=== PATIENT | male | born 1955 | race Caucasian/White ===

== ENCOUNTER 2020-02-19 16:28 | Emergency (ER) | payer MEDICARE, OTHER ==
[~2020-02-19] VITALS: Ht 172.7 cm; Wt 63.0 kg
[~2020-02-19 16:28] MED LIST: DOXY100T PO; QUET25TA5 PO
[2020-02-19 16:53] LABS: BILIRUBIN,URINE NEGATIVE (NEG); CLARITY,URINE CLEAR; COLOR,URINE YELLOW; NITRITE,URINE NEGATIVE (NEG); PROTEIN,URINE NEGATIVE (NEG-TRACE); UROBILINOGEN,URINE 0.2 mg/dL (0.2 mg/dL)
--- NOTE | 2020-02-19 16:59 | PHYS DOC ---
Past Medical History Past Medical History: Pneumonia Additional Past Medical Histor: alzheimer's, partial left eye blindness Past Surgical History: Appendectomy Smoking Status: Never Smoker Alcohol Use: None Drug Use: None General Adult EDM: Chief Complaint: ABDOMINAL PAIN HPI: HPI: Patient is a 64 year old male who presents with 1 week of intermittent abdominal pain generalized with some nausea. Patient has Alzheimer's and is unable to tell me why he is here or give me accurate history. states that he complained that this aching pain went up to the left shoulder and that was yesterday. She states that she is been trying to get him into his doctor but they are both through February. She states that his only history is Alzheimer's and he has left eye blindness and has had his appendix out. She states he has been constipated. She states his last bowel movement was very small and it was very small. states that the patient began vomiting this morning. Patient denies any pain at this time. He states he is slightly nauseated. Patient and deny chest pain, shortness of air, diarrhea, fever, cough, back pain, dizziness, headache, body aches, focal weakness. Review of Systems: Review of Systems: Constitutional: Denies fever or chills. [] Eyes: Denies change in visual acuity. [] HENT: Denies nasal congestion or sore throat. [] Respiratory: Denies cough or shortness of breath. [] Cardiovascular: Denies chest pain or edema. [] GI: + Intermittent abdominal pain, nausea, vomiting, constipation denies bloody stools or diarrhea. [] : Denies dysuria. [] Musculoskeletal: Denies back pain or joint pain. Left shoulder pain. [] Integument: Denies rash. [] Neurologic: Denies headache, focal weakness or sensory changes. [] Endocrine: Denies polyuria or polydipsia. [] Lymphatic: Denies swollen glands. [] Psychiatric: Denies depression or anxiety. [] Heart Score: Risk Factors: Risk Factors: DM, Current or recent (<one month) smoker, HTN, HLP, family history of CAD, obesity. Risk Scores: Score 0 - 3: 2.5% MACE over next 6 weeks - Discharge Home Score 4 - 6: 20.3% MACE over next 6 weeks - Admit for Clinical Observation Score 7 - 10: 72.7% MACE over next 6 weeks - Early Invasive Strategies Allergies: Allergies: Allergies Coded Allergies Type Severity Reaction Last Updated Verified No Known Drug Allergies 02/17/19 No Physical Exam: PE: Constitutional: Well developed, well nourished, no acute distress, non-toxic appearance. [] HENT: Normocephalic, atraumatic, bilateral external ears normal, oropharynx moist, no oral exudates, nose normal. [] Eyes: PERRLA, EOMI, conjunctiva normal, no discharge. [] Neck: Normal range of motion, no tenderness, supple, no stridor. [] Cardiovascular:Heart rate regular rhythm, no murmur [] Lungs & Thorax: Bilateral breath sounds clear to auscultation [] Abdomen: Bowel sounds normal, soft, no tenderness, no masses, no pulsatile masses. [] Skin: Warm, dry, no erythema, no rash. [] Back: No tenderness, no CVA tenderness. [] Extremities: No tenderness, no cyanosis, no clubbing, ROM intact, no edema. [] Neurologic: Alert and oriented X 3, normal motor function, normal sensory function, no focal deficits noted. [] Psychologic: Affect normal, judgement normal, mood normal. Normal physical exam. [] EKG: EK and read by Dr Beasley as Sinus Rhythm and no STEMI[] Radiology/Procedures: Radiology/Procedures: [] Impression: [facility] [address] [place], [place] [id number] IMAGING REPORT Signed PATIENT: DAVON ZHAO MACCOUNT: [id number] : 1955 LOCATION: ER AGE: 64 SEX: M EXAM STATUS: PRE ER ORD. PHYSICIAN: EVERARDO ULLOA APRN REASON: PAIN, VOMITING PROCEDURE: CT ABD PELV W/ IV CONTRST ONLY Exam: CT of abdomen and pelvis with contrast INDICATION: Pain, vomiting TECHNIQUE: Sequential axial images through the abdomen and pelvis obtained following the administration of 75 mL of Omni 300 IV contrast. Sagittal and coronal reformatted images were reconstructed from the axial data and reviewed. Comparisons: None FINDINGS: Heart size is normal. No pericardial effusion. Visualized lung bases are clear. No pleural effusion. Liver, spleen, pancreas, gallbladder and adrenals are unremarkable. No perinephric inflammation or hydronephrosis. No ureteral calculi are identified. There is a 1 cm calculus at the lower pole of the left kidney. Bladder is decompressed not well evaluated. Prostate is not enlarged. There is a partially visualized right hydrocele. Large and small bowel are unremarkable. Appendix is not identified. No free intra-abdominal air or fluid. No obstruction. Abdominal aorta has normal course and caliber. Abdominal vasculature is patent. No enlarged intra-abdominal lymph nodes are identified. No suspicious osseous lesions or acute fractures. IMPRESSION: 1. Nonobstructing calculus at the left kidney. 2. Partially visualized right hydrocele in the scrotum. Exposure: One or more of the following in the visualized dose reduction techniques were utilized for this examination: 1. Automated exposure control 2. Adjustment of the MA and/or KV according to patient size 3. Use of iterative of reconstructive technique Electronically signed by: Donaldo Botello MD (02/19/2020 6:01 PM) [id number] DICTATED and SIGNED BY: DONALDO BOTELLO MD DATE: 02/19/[address] [facility] [address] [place], [place] [id number] IMAGING REPORT Signed PATIENT: DAVON ZHAOUNT: [id number] : 1955 LOCATION: ER AGE: 64 SEX: M EXAM STATUS: REG ER ORD. PHYSICIAN: EVERARDO ULLOA APRN REASON: vomiting PROCEDURE: PORTABLE CHEST 1V EXAM: PORTABLE CHEST 1V 02/19/2020 6:01 PM CLINICAL INDICATION: Vomiting COMPARISON: None TECHNIQUE: AP upright view of the chest FINDINGS: The heart and mediastinum are normal. Lungs are well-expanded and clear. No consolidation, pleural effusion, or pneumothorax. Pulmonary vascularity is normal. The thoracic skeleton is intact. IMPRESSION: Normal chest radiograph. Electronically signed by: Abby Webster MD (02/19/2020 7:04 PM) [id number] DICTATED and SIGNED BY: ABBY WEBSTER MD DATE: 02/19/20 190 Course & Med Decision Making: Course & Med Decision Making Pertinent Labs and Imaging studies reviewed. (See chart for details) COVID-19 CRITERIA: The patient was evaluated during the global COVID-19 pandemic, and that diagnosis was suspected/considered upon their initial presentation. Their evaluation, treatment and testing was consistent with current guidelines for patients who present with complaints or symptoms that may be related to COVID-19. See HPI. Alert and oriented to person, place. This is his baseline per the . No extremity edema. Lungs are clear to all station all lobes. Vital si gns are within normal limits. He is ambulatory with a steady gait. Abdomen is soft and nontender. Skin pink warm and dry. Speaks in full clear sentences. Blood work is unremarkable. Chest x-ray shows no acute findings. Patient is p.o. challenge successfully. Patient to follow-up with primary care physician. [] Cori Disclaimer: Dragon Disclaimer: This electronic medical record was generated, in whole or in part, using a voice recognition dictation system. COVID-19 Patient Risks: Age 65 or older: Yes Sign of co-morbidity: Yes Exp to person + for COVID: No Exp to PUI: No Travel from affected area: No Lower respiratory symptoms: No Fever: No Other: Yes (NAUSEA, VOMITING) PPE Use: Full PPE with N95 mask or PAPR: Yes Departure Departure Impression: Primary Impression: Abdominal pain Qualified Codes: R10.84 - Generalized abdominal pain Additional Impression: Nausea & vomiting Qualified Codes: R11.2 - Nausea with vomiting, unspecified Disposition: 01 HOME, SELF-CARE Condition: STABLE Referrals: LULA TAVERAS MD (PCP) Patient Instructions: Abdominal Pain (Nonspecific), Nausea and Vomiting, Tpwn-[id number] Additional Instructions: Follow-up with primary care physician as soon as possible. Drink plenty of fluids. Take medication as prescribed. If symptoms become severe return to the emergency room. You have been tested for or diagnosed with COVID-19. It is an infection caused by a new type of coronavirus. COVID-19 will cause cold-like or mild flu symptoms in most. It can cause more severe symptoms like problems breathing in some. There is no treatment for COVID-19. The body will clear the infection over time. Self-care will help to ease discomfort. Steps to Take: Self-Care Rest as needed. Healthy habits may help you feel better. Steps include: Choose healthy foods including fruits and vegetables. Drink water throughout the day. Get plenty of sleep each night. If you smoke, try to quit. It may ease breathing. Avoid alcohol. Keep Others Healthy The virus can spread to others. Droplets are released every time you sneeze or cough. The droplets can get into the mouth, nose, or eyes of people near you and lead to infection. To lower the chances of spreading COVID-19 to others: Stay at home until your doctor has said it is safe to leave. If you tested positive this will mean staying isolated until both of the following are true: At least 7 days have passed since the start of illness. You are free of fever for at least 72 hours without the use of medicine. During this time: - Avoid public areas, events, or transportation. Do not return to work or school until your doctor has said it is safe to do so. - Call ahead if you need to go to a medical center. Let them know you may have COVID-19. It will help them guide you where to go. They may also ask you to wear a facemask when you come to the office. - If you call for emergency medical services, let them know you may have COVID- 19. While at home: - Try to avoid close contact with others. Stay about 6 feet away. - If possible, spend most of your time in a separate room from others. - Use a face mask if you will be in close contact with others such as sharing a room or vehicle. - Have someone wipe down common surfaces in the home. Use household electronic equipment repairmen every day on areas like doorknobs, counters, or sinks. - Cough or sneeze into a tissue. Throw the tissue away right after use. If a tissue is not available, cough or sneeze into your elbow. - Wash your hands often. Wash them after sneezing or coughing. Use soap and water and wash for at least 20 seconds. Alcohol based hand pigs feet cleaner can be used if soap and water is not available. - Do not prepare food for others. Avoid sharing personal items like forks, spoons, or toothbrushes. - Avoid close contact with pets while you are sick. There is no evidence of the virus passing to pets. This is a safety step until more is known about this virus. Isolation can be frustrating. Social interaction can help. Keep in touch with friends and family through phone and tech options. You can still interact with others in your home, just keep a safe distance of about 6 feet. Follow-up: Your doctors office will check in with you to see if there are any changes in your health. You may be asked to keep track of symptoms to share with them. They will also let you know when you are clear to be in public again. Problems to Look Out For: Contact your doctor if your recovery is not going as you expect. Get emergency care if you have problems such as: - Trouble breathing - Nonstop chest pain or pressure - Changes in awareness, confusion, or problems waking - Lips or face have bluish color - Worsening of symptoms If you think you have an emergency, call for emergency medical services right away. [facility] Ondansetron (ONDANSETRON ODT) 4 Mg Tab.rapdis 1 TAB PO PRN Q6-8HRS, #16 TAB Prov: EVERARDO ULLOA BOWL ATTENDANT 02/19/20 Justicifation of Admission Dx: Justifications for Admission: Justification of Admission Dx: N/A EVERARDO ULLOA BOWL ATTENDANT Feb 19, 2020 16:59
[2020-02-19] MEDS ORDERED: IV NORMAL SALINE 1000ML BAG 1,000 ML IV ONE (17:00)
[2020-02-19] MEDS ORDERED: ONDANSETRON PF 4 MG/2 ML VIAL. IVP ONE (17:00)
[2020-02-19 17:01] LABS: HYALINE CASTS, URINE OCCASIONAL /HPF
[2020-02-19 17:02] LABS: BACTERIA,URINE 0 /HPF (0-FEW); RBC,URINE 0 /HPF (0-2); SPERM,URINE PRESENT /HPF; WBC,URINE OCC /HPF (0-4)
[2020-02-19 17:21] LABS: BASO % 0 % (0-3); EOS # 0.1 x10^3/uL (0.0-0.7); EOS % 1 % (0-3); HEMATOCRIT 43.6 % (39.0-53.0); HEMOGLOBIN 15.1 g/dL (13.0-17.5); LYMPH # 1.5 x10^3/uL (1.0-4.8); LYMPH % 20 % (24-48); MEAN CORPUSCULAR HEMOGLOBIN 32 pg (25-35); MEAN CORPUSCULAR HGB CONC 35 g/dL (31-37); MEAN CORPUSCULAR VOLUME 93 fL (79-100); MONO # 0.5 x10^3/uL (0.0-1.1); MONO % 7 % (0-9); NEUT # 5.4 x10^3/uL (1.8-7.7); NEUT % 72 % (31-73); PLATELET COUNT 175 x10^3/uL (140-400); RED BLOOD COUNT 4.67 x10^6/uL (4.30-5.70); RED CELL DISTRIBUTION WIDTH 13.5 % (11.5-14.5); WHITE BLOOD COUNT 7.5 x10^3/uL (4.0-11.0)
[2020-02-19 17:29] LABS: GFR 74.8; POTASSIUM 4.2 mmol/L (3.5-5.1)
[2020-02-19 17:35] LABS: ALBUMIN 3.8 g/dL (3.4-5.0); ALBUMIN/GLOBULIN RATIO 1.4 (1.0-1.7); TOTAL BILIRUBIN 0.4 mg/dL (0.2-1.0); TOTAL PROTEIN 6.6 g/dL (6.4-8.2)
[2020-02-19] MEDS ORDERED: IOHEXOL 300 MG/ML 100ML VIAL. IV ONE (17:45)
--- NOTE | 2020-02-19 18:04 | RAD ---
Exam: CT of abdomen and pelvis with contrast INDICATION: Pain, vomiting TECHNIQUE: Sequential axial images through the abdomen and pelvis obtained following the administration of 75 mL of Omni 300 IV contrast. Sagittal and coronal reformatted images were reconstructed from the axial data and reviewed. Comparisons: None FINDINGS: Heart size is normal. No pericardial effusion. Visualized lung bases are clear. No pleural effusion. Liver, spleen, pancreas, gallbladder and adrenals are unremarkable. No perinephric inflammation or hydronephrosis. No ureteral calculi are identified. There is a 1 cm calculus at the lower pole of the left kidney. Bladder is decompressed not well evaluated. Prostate is not enlarged. There is a partially visualized right hydrocele. Large and small bowel are unremarkable. Appendix is not identified. No free intra-abdominal air or fluid. No obstruction. Abdominal aorta has normal course and caliber. Abdominal vasculature is patent. No enlarged intra-abdominal lymph nodes are identified. No suspicious osseous lesions or acute fractures. IMPRESSION: 1. Nonobstructing calculus at the left kidney. 2. Partially visualized right hydrocele in the scrotum. Exposure: One or more of the following in the visualized dose reduction techniques were utilized for this examination: 1. Automated exposure control 2. Adjustment of the MA and/or KV according to patient size 3. Use of iterative of reconstructive technique Electronically signed by: Donaldo Pizano MD (02/19/2020 6:01 PM) [id number]
--- NOTE | 2020-02-19 19:07 | RAD ---
EXAM: PORTABLE CHEST 1V 02/19/2020 6:01 PM CLINICAL INDICATION: Vomiting COMPARISON: None TECHNIQUE: AP upright view of the chest FINDINGS: The heart and mediastinum are normal. Lungs are well-expanded and clear. No consolidation, pleural effusion, or pneumothorax. Pulmonary vascularity is normal. The thoracic skeleton is intact. IMPRESSION: Normal chest radiograph. Electronically signed by: Alana Webster MD (02/19/2020 7:04 PM) [id number]
[2020-02-19] MEDS ORDERED: ONDA4TAB12 PO (19:33)
[2020-02-19 20:21] VITALS: BP 123/68
--- NOTE | 2020-02-21 10:34 | EKG ---
[address] [place] [address] Test Date: 2020-02-19 Test Time: 16:41:04 Pat Name: DAVON ZHAO Department: Room: Gender: M Life Skills Specialist: : 1955 Requested By: EVERARDO ULLOA Order Number: [id number] Reading MD: Yahir Schmitt Measurements Intervals [place] Rate: 72 P: 64 UT: 178 QRS: 58 QRSD: 60 T: 54 QT: 370 QTc: 407 Interpretive Statements SINUS RHYTHM ATRIAL PREMATURE COMPLEX(ES) Electronically Signed On 02-23-2020 12:33:10 CDT by Yahir Schmitt
--- NOTE | 2020-02-21 15:05 | NUR ---
IP: Informed pt's , DPOA, of pt's negative COVID test. No questions at this time.
== END 2020-02-19 21:00 | disposition home or self-care (01) ==
LOC: ER 16:28
DX: R10.84 Generalized abdominal pain (principal); Z20.828 Contact with and (suspected) exposure to other viral communicable diseases; R11.2 Nausea with vomiting, unspecified; Z90.89 Acquired absence of other organs
CPT/HCPCS: 36415; 71045; 74177; 80053; 81001; 83690; 84484; 85025; 85610; 93005; 96361; 96374; 99285; J2405; J7030; Q9967; U0003

== ENCOUNTER 2020-09-11 22:14 | Emergency (ER) | payer MEDICARE, OTHER ==
[~2020-09-11] VITALS: Ht 172.7 cm; Wt 57.0 kg
[~2020-09-11 22:14] MED LIST changes: +ACET325T21 PO; +DOCU-153 PO; +GALA16CA PO; +LORA-434 PO; +MEMA10TA PO; +MULT-53 PO; +ONDA4TAB12 PO; +PANT40TA77 PO
[2020-09-11 23:00] VITALS: BP 140/74
== END 2020-09-12 00:56 | disposition left against medical advice (07) ==
LOC: ER 22:14
DX: H57.89 Other specified disorders of eye and adnexa (principal); R60.0 Localized edema; Z53.21 Procedure and treatment not carried out due to patient leaving prior to being seen by health care provider

== ENCOUNTER → 2020-09-27 | Outpatient (CLI) | payer MEDICARE, OTHER ==
[2020-09-11 23:00] VITALS: BP 140/74
--- NOTE | 2020-09-27 16:32 | KCIC ---
CT HEAD WITHOUT CONTRAST 09/27/2020 1:45 PM Indication: Reason: Subarachnoid hemorrhage follow up, hx fall and dementia. / Spl. Instructions: / History: Comparison: CT head without contrast September 08, 2020 Procedure: Multidetector CT imaging of the head was performed without the administration of contrast. Findings: Minimal frontal contusion or subarachnoid hemorrhage has decrease in the interim, now barel y visible. Right occipital encephalomalacia is stable. Diffuse atrophic changes are noted. Prominenc e of the lateral right ventricles is similar. No acute appearing mass effect or midline shift is seen . No intraventricular hemorrhage is identified. No acute osseous changes are noted in the interim. IMPRESSION: Interval decreased conspicuity of minimal right frontal contusion versus extra-axial hemo rrhage, now barely visible CT DOSING PQRS STATEMENT: One or more of the following individualized dose reduction techniques were utilized for this examinat ion: 1. Automated exposure control 2. Adjustment of the mA and/or kV according to patient size 3. Use of iterative reconstruction technique Electronically signed by: Vincent Sanabria MD (09/27/2020 4:29 PM) [id number]
== END ==
LOC: KCIC CT 13:25
PROVIDERS: ATTEND Neurological Surgery
DX: S06.360A Traumatic hemorrhage of cerebrum, unspecified, without loss of consciousness, initial encounter (principal); F03.90 Unspecified dementia, unspecified severity, without behavioral disturbance, psychotic disturbance, mood disturbance, and anxiety; X58.XXXA Exposure to other specified factors, initial encounter; Y93.89 Activity, other specified; Y92.89 Other specified places as the place of occurrence of the external cause; Y99.8 Other external cause status
CPT/HCPCS: 70450

== ENCOUNTER → 2020-11-29 | Emergency (ER) | payer MEDICARE, OTHER | END | disposition left against medical advice (07) | LOC: ER 20:15 | DX: G30.9 Alzheimer's disease, unspecified (principal); Z53.21 Procedure and treatment not carried out due to patient leaving prior to being seen by health care provider ==

== ENCOUNTER 2021-01-25 22:57 | Inpatient (IN) | payer MEDICARE, OTHER ==
[~2021-01-25] VITALS: Ht 167.6 cm; Wt 61.5 kg
[~2021-01-25 22:57] MED LIST changes: +DOCU-148 PO; -DOCU-153 PO
[2021-01-25] MEDS ORDERED: ACETAMINOPHEN 500 MG TABLET PO ONE (23:30)
[2021-01-25] MEDS ORDERED: IV NORMAL SALINE 1000ML BAG 1,000 ML IV ONE (23:30)
[2021-01-25] MEDS ORDERED: methylPREDNISolone SOD SUCC PF 125 MG/2 ML VIAL. IV ONE (23:45)
[2021-01-26 00:01] LABS: BASO % 0 % (0-3); EOS % 0 % (0-3); HEMOGLOBIN 13.7 g/dL (13.0-17.5); LYMPH # 0.7 x10^3/uL (1.0-4.8); LYMPH % 10 % (24-48); MEAN CORPUSCULAR HEMOGLOBIN 31 pg (25-35); MEAN CORPUSCULAR HGB CONC 35 g/dL (31-37); MEAN CORPUSCULAR VOLUME 89 fL (79-100); MONO # 0.5 x10^3/uL (0.0-1.1); MONO % 7 % (0-9); NEUT # 6.1 x10^3/uL (1.8-7.7); NEUT % 82 % (31-73); PLATELET COUNT 227 x10^3/uL (140-400); RED BLOOD COUNT 4.37 x10^6/uL (4.30-5.70); RED CELL DISTRIBUTION WIDTH 12.9 % (11.5-14.5); WHITE BLOOD COUNT 7.4 x10^3/uL (4.0-11.0)
[2021-01-26 00:16] LABS: CALCIUM 8.4 mg/dL (8.5-10.1); CREATININE 1.1 mg/dL (0.7-1.3); GFR 66.8; POTASSIUM 4.1 mmol/L (3.5-5.1)
--- NOTE | 2021-01-26 00:20 | PHYS DOC ---
Past Medical History Past Medical History: Dementia, Pneumonia Additional Past Medical Histor: alzheimer's, partial left eye blindness Past Surgical History: Appendectomy Smoking Status: Never Smoker Alcohol Use: None Drug Use: None General Adult EDM: Chief Complaint: WEAKNESS/GENERALIZED HPI: HPI: Patient is a 65 year old male who was brought here by EMS from home due to confusion with generalized weakness. Patient had history of dementia, he was diagnosed with COVID-19 infection and sent January 10. His family stated that patient developed fever, having trouble breathing and cough, acting more confused and appeared to be weaker than normal. EMS were called to take him here for evaluation. Upon arrival to room patient was confused, he repeatedly stated that he did not want to . Review of Systems: Review of Systems: Constitutional: Positive fever and Eyes: Denies change in visual acuity. [] HENT: Denies nasal congestion or sore throat. [] Respiratory: Positive for cough and trouble breathing Cardiovascular: Denies chest pain or edema. [] GI: Denies abdominal pain, nausea, vomiting, bloody stools or diarrhea. [] : Denies dysuria. [] Musculoskeletal: Denies back pain or joint pain. [] Integument: Denies rash. [] Neurologic: Denies headache, focal weakness or sensory changes, positive for general weakness Endocrine: Denies polyuria or polydipsia. [] Lymphatic: Denies swollen glands. [] Psychiatric: Denies depression or anxiety. [] Heart Score: C/O Chest Pain: N/A Risk Factors: Risk Factors: DM, Current or recent (<one month) smoker, HTN, HLP, family hist ory of CAD, obesity. Risk Scores: Score 0 - 3: 2.5% MACE over next 6 weeks - Discharge Home Score 4 - 6: 20.3% MACE over next 6 weeks - Admit for Clinical Observation Score 7 - 10: 72.7% MACE over next 6 weeks - Early Invasive Strategies Current Medications: Current Medications Medications (Trade) Dose Ordered Sig/Stacy Start Time Stop Time Status Last Admin Dose Admin Acetaminophen (Tylenol) 1,000 mg 1X ONCE 01/25/21 23:30 01/25/21 23:31 DC 01/26/21 00:15 1,000 MG Lorazepam (Ativan Inj) 1 mg 1X ONCE 01/26/21 00:15 01/26/21 00:16 DC 01/26/21 00:13 1 MG Methylprednisolone Sodium Succinate (SOLU-Medrol 125MG VIAL) 125 mg 1X ONCE 01/25/21 23:45 01/25/21 23:46 DC 01/26/21 00:11 125 MG Sodium Chloride 1,000 ml @ 1,000 mls/hr 1X ONCE 01/25/21 23:30 01/26/21 00:29 01/25/21 23:54 1,000 MLS/HR Allergies: Allergies: Allergies Coded Allergies Type Severity Reaction Last Updated Verified No Known Drug Allergies 02/17/19 No Physical Exam: PE: Constitutional: Well developed, well nourished, no acute distress, non-toxic appearance. [] HENT: Normocephalic, atraumatic, bilateral external ears normal, oropharynx moist, no oral exudates, nose normal. [] Eyes: No conjunctival discharge Neck: Normal range of motion, no tenderness, supple, no stridor. [] Cardiovascular:Heart rate regular rhythm, no murmur [] Lungs & Thorax: Bilateral breath sounds with crackles throughout Abdomen: Bowel sounds normal, soft, no tenderness, no masses, no pulsatile mas ses. [] Skin: Warm, dry, no erythema, no rash. [] Back: No tenderness, no CVA tenderness. [] Extremities: No tenderness, no cyanosis, no clubbing, ROM intact, no edema. [] Neurologic: Alert and oriented X 3, normal motor function, normal sensory function, no focal deficits noted. [] Psychologic: Affect normal, judgement normal, mood normal. [] Current Patient Data: Labs: Laboratory Tests Test 01/25/21 23:50 White Blood Count 7.4 x10^3/uL (4.0-11.0) Red Blood Count 4.37 x10^6/uL (4.30-5.70) Hemoglobin 13.7 g/dL (13.0-17.5) Hematocrit 39.0 % (39.0-53.0) Mean Corpuscular Volume 89 fL (79-100) Mean Corpuscular Hemoglobin 31 pg (25-35) Mean Corpuscular Hemoglobin Concent 35 g/dL (31-37) Red Cell Distribution Width 12.9 % (11.5-14.5) Platelet Count 227 x10^3/uL (140-400) Neutrophils (%) (Auto) 82 % (31-73) H Lymphocytes (%) (Auto) 10 % (24-48) L Monocytes (%) (Auto) 7 % (0-9) Eosinophils (%) (Auto) 0 % (0-3) Basophils (%) (Auto) 0 % (0-3) Neutrophils # (Auto) 6.1 x10^3/uL (1.8-7.7) Lymphocytes # (Auto) 0.7 x10^3/uL (1.0-4.8) L Monocytes # (Auto) 0.5 x10^3/uL (0.0-1.1) Eosinophils # (Auto) 0.0 x10^3/uL (0.0-0.7) Basophils # (Auto) 0.0 x10^3/uL (0.0-0.2) Sodium Level 140 mmol/L (136-145) Potassium Level 4.1 mmol/L (3.5-5.1) Chloride Level 103 mmol/L (98-107) Carbon Dioxide Level 28 mmol/L (21-32) Anion Gap 9 (6-14) Blood Urea Nitrogen 18 mg/dL (8-26) Creatinine 1.1 mg/dL (0.7-1.3) Estimated GFR (Cockcroft-Gault) 66.8 BUN/Creatinine Ratio 16 (6-20) Glucose Level 108 mg/dL (70-99) H Calcium Level 8.4 mg/dL (8.5-10.1) L Magnesium Level Pending Total Bilirubin Pending Aspartate Amino Transferase (AST) Pending Alanine Aminotransferase (ALT) Pending Alkaline Phosphatase Pending Total Protein Pending Albumin Pending Albumin/Globulin Ratio Pending Laboratory Tests 01/25/21 23:50 Laboratory Tests 01/25/21 23:50 Vital Signs: Vital Signs Date Time Temp Pulse Resp B/P (MAP) Pulse Ox O2 Delivery O2 Flow Rate FiO2 01/25/21 23:00 100.6 77 12 140/74 (96) 94 Room Air 100.6 EKG: EKG: EKG was done at 1208, heart rate 84 bpm, sinus rhythm, no ST segment elevation Radiology/Procedures: Radiology/Procedures: [][facility] [address] [place] [address] IMAGING REPORT Signed PATIENT: DAVON ZHAOCOUNT: [id number] : 1955 LOCATION: ER AGE: 65 SEX: M EXAM STATUS: REG ER ORD. PHYSICIAN: ESTRELLA WOODS DO REASON: COVID-19 INFECTION, SOA, COUGH, FEVER PROCEDURE: CHEST AP ONLY EXAM: XR CHEST 1V 01/25/2021 12:05 AM CLINICAL INDICATION: Covid 19, shortness of breath, cough and fever COMPARISON: Chest radiograph 02/19/2020 TECHNIQUE: AP semiupright view of the chest FINDINGS: The heart is normal in size. Limited review. There are new airspace opacities in the peripheral left mid and upper lung and peripheral right upper lobe, greater on the left. No pleural effusion or pneumothorax. No acute osseous abnormality. IMPRESSION: Bilateral airspace opacities consistent with Covid pneumonia. Electronically signed by: Alana Webster MD (01/26/2021 12:42 AM) [id number] DICTATED and SIGNED BY: ALANA WEBSTER MD DATE: 01/26/21 [id number] Course & Med Decision Making: Course & Med Decision Making Pertinent Labs and Imaging studies reviewed. (See chart for details) Patient is a 65-year-old male who was brought here by EMS from home due to confusion, general increased weakness and shortness of air. Patient has been infected with COVID-19 for 10 days, chest x-ray shown bilateral infiltration consistent with COVID-19 pneumonia. Patient will be admitted to hospital for further evaluation and treatment. Dragon Disclaimer: Dragon Disclaimer: This electronic medical record was generated, in whole or in part, using a voice recognition dictation system. Departure Departure Impression: Primary Impression: Pneumonia due to COVID-19 virus Additional Impression: Generalized weakness Disposition: ADMITTED INPATIENT Admitting Physician: CITLALY (Dr. DAVIS) Condition: STABLE Referrals: BENY SONG (PCP) ESTRELLA WOODS DO Jan 26, 2021 00:20
[2021-01-26 00:21] LABS: ALBUMIN 2.7 g/dL (3.4-5.0); ALBUMIN/GLOBULIN RATIO 0.9 (1.0-1.7); TOTAL BILIRUBIN 0.5 mg/dL (0.2-1.0); TOTAL PROTEIN 5.7 g/dL (6.4-8.2)
--- NOTE | 2021-01-26 00:45 | RAD ---
EXAM: XR CHEST 1V 01/25/2021 12:05 AM CLINICAL INDICATION: Covid 19, shortness of breath, cough and fever COMPARISON: Chest radiograph 02/19/2020 TECHNIQUE: AP semiupright view of the chest FINDINGS: The heart is normal in size. Limited review. There are new airspace opacities in the perip heral left mid and upper lung and peripheral right upper lobe, greater on the left. No pleural effusi on or pneumothorax. No acute osseous abnormality. IMPRESSION: Bilateral airspace opacities consistent with Covid pneumonia. Electronically signed by: Alana Webster MD (01/26/2021 12:42 AM) [id number]
[2021-01-26] MEDS ORDERED: cefTRIAXone IV Push 1 GM VIAL. IVP ONE (01:00)
[2021-01-26] MEDS ORDERED: AZITHRMYCN 500MG IVPB FOR OMNI 250 ML IV ONE (01:00)
--- NOTE | 2021-01-26 02:54 | EKG ---
[facility] [address] [place] [address] Test Date: 2021-01-26 Test Time: 00:01:14 Pat Name: DAVON ZHAO Department: Room: Gender: M Sprayer Machine: : 1955 Requested By: ESTRELLA WOODS Order Number: [id number] Reading MD: Measurements Intervals [place] Rate: 95 P: RI: QRS: 53 QRSD: 66 T: 48 QT: 342 QTc: 433 Interpretive Statements IRREGULAR RHYTHM, NO P-WAVE FOUND LOW LIMB LEAD VOLTAGE NO SPECIFIC ECG ABNORMALITIES RI6.02 No previous ECG available for comparison
[2021-01-26] MEDS ORDERED: ESCITALOPRAM OX20 MG PO (08:05)
[2021-01-26] MEDS ORDERED: OLAN5TAB67 PO (08:05)
[2021-01-26] MEDS ORDERED: DIVA-53 PO (08:05)
[2021-01-26] MEDS ORDERED: RIVA1PAT22 TP (08:05)
[2021-01-26] MEDS ORDERED: TRAZ-118 PO (08:05)
[2021-01-26] MEDS: IV NORMAL SALINE 1000ML BAG 1,000 ML IV SCH ×2 (09:20→22:54)
[2021-01-26 11:05] VITALS: BP 86/53
[2021-01-26 11:44] VITALS: BP 91/55
--- NOTE | 2021-01-26 13:18 | HP ---
ADMIT DATE: 01/26/2021 CHIEF COMPLAINT: Weakness. HISTORY OF PRESENT ILLNESS: The patient is a pleasant 65-year-old male who was brought to the ER by EMS. He is confused. He is weak, but he does have a history of dementia. He was diagnosed with COVID-19 on 01/10. He has now developed a fever. He is having problems breathing and coughing. Basically, his COVID-19 is worsening. I have discussed the case with ER physician. We are going to admit the patient per COVID-19 protocol. PAST MEDICAL HISTORY: Dementia, COVID-19 for the past 15 days, previous pneumonia, Alzheimer's, partial left eye blindness, appendectomy. ALLERGIES: None. FAMILY HISTORY: Diabetes. SOCIAL HISTORY: He does not drink, smoke or take drugs. He is . MEDICATIONS: Reviewed. REVIEW OF SYSTEMS: Unable to obtain. He is too confused. PHYSICAL EXAMINATION: VITALS: Within normal limits and are stable. GENERAL: He is pleasantly confused and very weak. HEENT: Normal cephalic atraumatic, external auditory canals are patent. EYES: Extraocular muscles are intact, pupils are equally round and reactive to light and accommodation. MUSCULOSKELETAL: Well developed, well nourished, good range of motion. ENDOCRINE: No thyromegaly was palpated. LYMPHATICS: No cervical chain or axillary nodes were noted. HEMATOPOIETIC: No bruising. NECK: Supple, no JVD, no thyromegaly was noted. LUNGS: He has got bibasilar crackles. HEART: RRR, S1, S2 present. Peripheral pulses intact, no obvious murmurs were noted. ABDOMEN: Soft, nontender. Positive bowel sounds no organomegaly, normal bowel sounds. EXTREMITIES: Without any cyanosis, clubbing, or edema. Pedal pulses intact, Homans sign is negative. NEUROLOGIC: He is pleasantly confused and very weak. PSYCHIATRIC: He is pleasantly confused and very weak. SKIN: No ulcerations or rashes, good skin turgor, no jaundice. VASCULAR: Good capillary refill, neurovascular bundle appears to be intact. LABORATORY DATA: White count 7. Electrolytes are normal. Chest x-ray shows bilateral airspace opacities consistent with COVID pneumonia. ASSESSMENT AND PLAN: COVID-19, respiratory failure. The patient has been admitted. We will start COVID protocol. He is not hypoxic at this time, so he does not meet criteria for remdesivir, but we will start IV steroids, broad-spectrum antibiotics, vitamins, minerals, beta agonist, oxygen, codeine cough syrup and aspirin. Home meds. DVT prophylaxis. Full code. LONG-TERM PROGNOSIS: Guarded. GLEN DR: Breana TID: [id number]
[2021-01-26] MEDS: DOXYCYCLINE HYCLATE 100 MG in IV DEXTROSE 5% 100ML 100 ML IV SCH ×2 (13:30→22:50)
[2021-01-26] MEDS: ASPIRIN CHEWABLE 81 MG TABLET. PO SCH (13:35)
[2021-01-26] MEDS: methylPREDNISolone SOD SUCC PF 40 MG/ML VIAL. IV SCH ×2 (13:35→22:47)
[2021-01-26 15:00] VITALS: BP 98/54
[2021-01-26 21:55] VITALS: BP 117/72
--- NOTE | 2021-01-26 22:02 | NUR ---
Pt.just arrived from ED via bed w/ Covid + PNU, weakness and Alzheimers. He is a/o x1 and has not made any needs known. @ BS
[2021-01-26] MEDS: MEMANTINE 10 MG TABLET. PO SCH (22:47)
[2021-01-26] MEDS: DIVALPROEX DELAYED RELEASE 250 MG TABLET.DR. PO SCH (22:48)
[2021-01-26] MEDS: cefTRIAXone IV Push 1 GM VIAL. IVP SCH (22:53)
[2021-01-27] MEDS: guaiFENesin/CODEINE 100mg/10mg 5 ML LIQUID PO PRN ×2 (00:08→20:57)
[2021-01-27] MEDS: OLANZapine 5 MG TABLET PO PRN ×2 (00:09→22:19)
[2021-01-27 03:00] VITALS: BP 94/73
[2021-01-27 07:00] VITALS: BP 95/56
[2021-01-27] MEDS ORDERED: MULTIVITAMIN with MINERAL TABLET. PO SCH (09:00)
[2021-01-27] MEDS: DIVALPROEX DELAYED RELEASE 250 MG TABLET.DR. PO SCH ×3 (09:50→20:57)
[2021-01-27] MEDS: methylPREDNISolone SOD SUCC PF 40 MG/ML VIAL. IV SCH ×2 (09:50→20:58)
[2021-01-27] MEDS: PANTOPRAZOLE 40 MG TABLET.DR. PO SCH (09:51)
[2021-01-27] MEDS: CITALOPRAM 20 MG TABLET. PO SCH (09:51)
[2021-01-27] MEDS: MEMANTINE 10 MG TABLET. PO SCH ×2 (09:51→20:57)
[2021-01-27] MEDS: MULTIVITAMIN with MINERAL TABLET. PO SCH (09:51)
[2021-01-27] MEDS: ASPIRIN CHEWABLE 81 MG TABLET. PO SCH (09:51)
[2021-01-27] MEDS: DOXYCYCLINE HYCLATE 100 MG in IV DEXTROSE 5% 100ML 100 ML IV SCH ×2 (09:52→20:56)
[2021-01-27 11:00] VITALS: BP 94/49
--- NOTE | 2021-01-27 12:02 | PDOC ---
PROGRESS NOTES Date of Service: DATE: 01/27/21 TIME: 12:01 Chief Complaint Chief Complaint ASSESSMENT AND PLAN: COVID-19, Bilateral airspace opacities consistent with Covid pneumonia. acute hypoxic respiratory failure. Dementia admitted. start COVID protocol. not hypoxic at this time, he does not meet criteria for remdesivir, start IV steroids, broad-spectrum antibiotics, vitamins, minerals, beta agonist, oxygen support , codeine cough syrup aspirin. Home meds. DVT prophylaxis. Full code. LONG-TERM PROGNOSIS: Guarded. d/w rn History of Present Illness History of Present Illness CHIEF COMPLAINT: Weakness. HISTORY OF PRESENT ILLNESS: pleasant 65-year-old male who was brought to the ER by EMS. is weak, but he does have a history of dementia. He was diagnosed with COVID-19 on 01/10. now developed a fever. He is having problems breathing and coughing. Basically, his COVID-19 is worsening. We are going to admit the patient per COVID-19 protocol. PAST MEDICAL HISTORY: Dementia, COVID-19 for the past 15 days, previous pneumonia, Alzheimer's, partial left eye blindness, appendectomy. ALLERGIES: None. FAMILY HISTORY: Diabetes. SOCIAL HISTORY: He does not drink, smoke or take drugs. He is . MEDICATIONS: Reviewed. REVIEW OF SYSTEMS: Unable too confused. Vitals Vitals Vital Signs Date Time Temp Pulse Resp B/P (MAP) Pulse Ox O2 Delivery O2 Flow Rate FiO2 01/27/21 07:00 95.8 63 16 95/56 (69) 94 Room Air 95.8 Physical Exam Physical Exam VITALS: Within normal limits and are stable. GENERAL: He is pleasantly confused and very weak. HEENT: Normal cephalic atraumatic, external auditory canals are patent. EYES: Extraocular muscles are intact, pupils are equally round and reactive to light and accommodation. MUSCULOSKELETAL: Well developed, well nourished, good range of motion. ENDOCRINE: No thyromegaly was palpated. LYMPHATICS: No cervical chain or axillary nodes were noted. HEMATOPOIETIC: No bruising. NECK: Supple, no JVD, no thyromegaly was noted. LUNGS: He has got bibasilar crackles. HEART: RRR, S1, S2 present. Peripheral pulses intact, no obvious murmurs were noted. ABDOMEN: Soft, nontender. Positive bowel sounds no organomegaly, normal bowel sounds. EXTREMITIES: Without any cyanosis, clubbing, or edema. Pedal pulses intact, Homans sign is negative. NEUROLOGIC: He is pleasantly confused and very weak. PSYCHIATRIC: He is pleasantly confused and very weak. SKIN: No ulcerations or rashes, good skin turgor, no jaundice. VASCULAR: Good capillary refill, neurovascular bundle appears to be intact. General: Alert, Cooperative, No acute distress Heart: Regular rate, No murmurs Lungs: Clear Labs LABS talk about your own wishes for healthcare in case youre ever not able to tell your loved ones or healthcare team what your wishes are. If you became really sick tomorrow, would your loved ones or healthcare team know what your wishes were? Here are some examples of different sets of goals and health care directives for your conversations: My wish is to use all medical therapies including resuscitation (such as CPR) and artificial life-sustaining treatments (such as machines and medicine) in an intensive care unit, to keep me alive if at all possible. My wish is to live as long as possible, but I dont want attempts to bring me back to life if my heart and breathing stop. I would like full medical care but without using resuscitation or artificial life-sustaining intensive treatments, if these are unlikely to make me live longer or restore me to a certain quality of life. I will accept treatments that try to fix medical problems, but if Im not getting better or going to have a certain quality of life, I would want to switch to focusing only on my comfort and letting my happen naturally. My wish is for healthcare to focus on my comfort and lessen suffering. I would like medical care that focuses only on my quality of life and that allows me to naturally. Consider: What does a good quality of life mean for me? For many people, it is the ability to live independently and tell their own story. I may define it differently. Under what circumstances would I not want to be kept alive by medical treatments, resuscitation, or intensive care? What kind of changes to my health or life might make me change my mind? If I clearly am facing the last chapter of my life, how do I want the story to end? Who do I want to speak for me if I cant speak for myself? Do they understand my preferences? Are they willing to assume the role of my Durable Power of Upholstery Cleaner? Can I change my Goals of Care Designation? Yes, your Goals of Care Designation can be changed at any time. It should be reviewed if: your health condition changes your circumstances change (such as new understanding) you are transferred or admitted to another healthcare setting dpoa review, to pt portal 17 min and question review PATIENT: DAVON ZHAO MACCOUNT: [id number] : 1955 LOCATION: ER AGE: 65 SEX: M EXAM STATUS: REG ER ORD. PHYSICIAN: ESTRELLA WOODS DO REASON: COVID-19 INFECTION, SOA, COUGH, FEVER PROCEDURE: CHEST AP ONLY EXAM: XR CHEST 1V 01/25/2021 12:05 AM CLINICAL INDICATION: Covid 19, shortness of breath, cough and fever COMPARISON: Chest radiograph 02/19/2020 TECHNIQUE: AP semiupright view of the chest FINDINGS: The heart is normal in size. Limited review. There are new airspace opacities in the peripheral left mid and upper lung and peripheral right upper lobe, greater on the left. No pleural effusion or pneumothorax. No acute osseous abnormality. IMPRESSION: Bilateral airspace opacities consistent with Covid pneumonia. Electronically signed by: Alana Webster MD (01/26/2021 12:42 AM) [id number] DICTATED and SIGNED BY: ALANA WEBSTER MD DATE: 01/26/21 [id number] Assessment and Plan Assessmemt and Plan Problems Medical Problems: (1) Generalized weakness Status: Acute (2) Pneumonia due to COVID-19 virus Status: Acute Comment Review of Relevant I have reviewed the following items lewis (where applicable) has been applied. Labs Laboratory Tests Test 01/25/21 23:50 White Blood Count 7.4 x10^3/uL (4.0-11.0) Red Blood Count 4.37 x10^6/uL (4.30-5.70) Hemoglobin 13.7 g/dL (13.0-17.5) Hematocrit 39.0 % (39.0-53.0) Mean Corpuscular Volume 89 fL (79-100) Mean Corpuscular Hemoglobin 31 pg (25-35) Mean Corpuscular Hemoglobin Concent 35 g/dL (31-37) Red Cell Distribution Width 12.9 % (11.5-14.5) Platelet Count 227 x10^3/uL (140-400) Neutrophils (%) (Auto) 82 % (31-73) Lymphocytes (%) (Auto) 10 % (24-48) Monocytes (%) (Auto) 7 % (0-9) Eosinophils (%) (Auto) 0 % (0-3) Basophils (%) (Auto) 0 % (0-3) Neutrophils # (Auto) 6.1 x10^3/uL (1.8-7.7) Lymphocytes # (Auto) 0.7 x10^3/uL (1.0-4.8) Monocytes # (Auto) 0.5 x10^3/uL (0.0-1.1) Eosinophils # (Auto) 0.0 x10^3/uL (0.0-0.7) Basophils # (Auto) 0.0 x10^3/uL (0.0-0.2) Sodium Level 140 mmol/L (136-145) Potassium Level 4.1 mmol/L (3.5-5.1) Chloride Level 103 mmol/L (98-107) Carbon Dioxide Level 28 mmol/L (21-32) Anion Gap 9 (6-14) Blood Urea Nitrogen 18 mg/dL (8-26) Creatinine 1.1 mg/dL (0.7-1.3) Estimated GFR (Cockcroft-Gault) 66.8 BUN/Creatinine Ratio 16 (6-20) Glucose Level 108 mg/dL (70-99) Lactic Acid Level 1.5 mmol/L (0.4-2.0) Calcium Level 8.4 mg/dL (8.5-10.1) Magnesium Level 2.0 mg/dL (1.8-2.4) Total Bilirubin 0.5 mg/dL (0.2-1.0) Aspartate Amino Transf (AST/SGOT) 30 U/L (15-37) Alanine Aminotransferase (ALT/SGPT) 38 U/L (16-63) Alkaline Phosphatase 98 U/L (46-116) Troponin I Quantitative < 0.017 ng/mL (0.000-0.055) XH-Jkg-O-Type Natriuretic Peptide 44 pg/mL (0-124) Total Protein 5.7 g/dL (6.4-8.2) Albumin 2.7 g/dL (3.4-5.0) Albumin/Globulin Ratio 0.9 (1.0-1.7) Microbiology 01/25/21 Blood Culture - Preliminary, Resulted NO GROWTH AFTER 1 DAY Medications Current Medications Sodium Chloride 1,000 ml @ 1,000 mls/hr 1X ONCE IV Last administered on 01/25/21at 23:54; Start 01/25/21 at 23:30; Stop 01/26/21 at 00:29; Status DC Acetaminophen (Tylenol) 1,000 mg 1X ONCE PO Last administered on 01/26/21at 00:15; Start 01/25/21 at 23:30; Stop 01/25/21 at 23:31; Status DC Methylprednisolone Sodium Succinate (SOLU-Medrol 125MG VIAL) 125 mg 1X ONCE IV Last administered on 01/26/21at 00:11; Start 01/25/21 at 23:45; Stop 01/25/21 at 23:46; Status DC Lorazepam (Ativan Inj) 1 mg 1X ONCE IVP Last administered on 01/26/21at 00:13; Start 01/26/21 at 00:15; Stop 01/26/21 at 00:16; Status DC Ceftriaxone Sodium (Rocephin) 1 gm 1X ONCE IVP Last administered on 01/26/21at 01:37; Start 01/26/21 at 01:00; Stop 01/26/21 at 01:01; Status DC Azithromycin 250 ml @ 250 mls/hr 1X ONCE IV Last administered on 01/26/21at 01:45; Start 01/26/21 at 01:00; Stop 01/26/21 at 01:59; Status DC Sodium Chloride 1,000 ml @ 75 mls/hr [id number] IV Last administered on 01/26/21at 22:54; Start 01/26/21 at 09:30 Ceftriaxone Sodium (Rocephin) 1 gm Q24H IVP Last administered on 01/26/21at 22:53; Start 01/26/21 at 21:00 Doxycycline Hyclate 100 mg/ Dextrose 100 ml @ 50 mls/hr Q12HR IV Last administered on 01/27/21at 09:52; Start 01/26/21 at 13:30 Methylprednisolone Sodium Succinate (SOLU-Medrol 40MG VIAL) 40 mg BID IV Last administered on 01/27/21 09:50; Start 01/26/21 at 14:00 Multivitamins (Thera M Plus) 1 tab DAILY PO Last administered on 01/27/21 09:51; Start 01/27/21 at 09:00 Guaifenesin/ Codeine Phosphate (Robitussin Ac) 5 ml PRN Q6HRS PRN PO COUGH Last administered on 01/27/21at 00:08; Start 01/26/21 at 13:00 Aspirin (Aspirin Chewable) 81 mg [id number] PO Last administered on 01/27/21 09:51; Start 01/26/21 at 14:00 Divalproex Sodium (Depakote) 250 mg TID PO Last administered on 01/27/21 09:50; Start 01/26/21 at 21:00 Memantine (Namenda) 10 mg BID PO Last administered on 01/27/21 09:51; Start 01/26/21 at 21:00 Olanzapine (ZyPREXA) 2.5 mg PRN Q6HRS PRN PO ANXIETY / AGITATION Last administered on 01/27/21at 00:09; Start 01/26/21 at 15:45 Pantoprazole Sodium (Protonix) 40 mg DAILYAC PO Last administered on 01/27/21 09:51; Start 01/27/21 at 07:30 Rivastigmine (Exelon) 1 patch DAILY TD ; Start 01/27/21 at 09:00 Citalopram Hydrobromide (CeleXA) 40 mg DAILY PO Last administered on 01/27/21 09:51; Start 01/27/21 at 09:00 Multivitamins (Thera M Plus) 1 tab DAILY PO ; Start 01/27/21 at 09:00; Stop 01/26/21 at 21:59; Status DC Active Scripts Active Sm Therapeutic M Tablet (Multivit,Ther Iron,Ca,Fa & Min) 1 Each Tablet 1 Tab PO DAILY 30 Days Reported Trazodone Hcl 50 Mg Tablet 0.5 Mg PO PRN Q6HRS PRN EXELON 4.6mg/24hr (Rivastigmine) 1 Each Patch.td24 1 Patch TP DAILY Olanzapine 5 Mg Tablet 2.5 Mg PO PRN Q6HRS PRN Divalproex Sodium 500 Mg Tablet. 0.5 Tab PO TID Escitalopram Oxalate 20 Mg Tablet 1 Tab PO DAILY Namenda (Memantine Hcl) 10 Mg Tablet 28 Mg PO DAILY Pantoprazole Sodium (Pantoprazole Sodium) 40 Mg Tablet.dr 40 Mg PO DAILYAC Vitals/I & O Vital Sign - Last 24 Hours 01/26/21 01/26/21 01/26/21 01/26/21 15:00 20:05 20:30 21:05 Temp 95.7 95.7 Pulse 49 72 66 B/P (MAP) 98/54 (69) 113/56 (75) 100/57 (71) Pulse Ox 97 96 O2 Delivery Room Air Room Air Room Air 01/26/21 01/26/21 01/27/21 01/27/21 21:55 23:00 03:00 07:00 Temp 98.1 96.5 95.8 98.1 96.5 95.8 Pulse 72 58 63 Resp 18 18 16 16 B/P (MAP) 117/72 (87) 94/73 (80) 95/56 (69) Pulse Ox 96 96 94 O2 Delivery Room Air Room Air Room Air Room Air Intake and Output 01/26/21 01/26/21 01/27/21 15:00 23:00 07:00 Intake Total 100 ml 50 ml Output Total 200 ml Balance -200 ml 100 ml 50 ml Justicifation of Admission Dx: Justifications for Admission: Justification of Admission Dx: N/A THOR GRANT MD Jan 27, 2021 12:02
[2021-01-27] MEDS: RIVASTIGMINE 4.6MG PATCH. TD SCH (13:20)
[2021-01-27 15:00] VITALS: BP 108/69
[2021-01-27 16:45] LABS: BASO # 0.1 x10^3/uL (0.0-0.2); BASO % 0 % (0-3); EOS % 0 % (0-3); HEMOGLOBIN 13.7 g/dL (13.0-17.5); LYMPH % 5 % (24-48); MEAN CORPUSCULAR HEMOGLOBIN 31 pg (25-35); MEAN CORPUSCULAR HGB CONC 33 g/dL (31-37); MEAN CORPUSCULAR VOLUME 93 fL (79-100); MONO % 5 % (0-9); NEUT % 89 % (31-73); PLATELET COUNT 325 x10^3/uL (140-400); RED BLOOD COUNT 4.42 x10^6/uL (4.30-5.70); RED CELL DISTRIBUTION WIDTH 13.2 % (11.5-14.5)
[2021-01-27 17:11] LABS: ALBUMIN 2.7 g/dL (3.4-5.0); ALBUMIN/GLOBULIN RATIO 0.9 (1.0-1.7); CALCIUM 8.6 mg/dL (8.5-10.1); GFR 74.5; TOTAL BILIRUBIN 0.3 mg/dL (0.2-1.0); TOTAL PROTEIN 5.8 g/dL (6.4-8.2)
[2021-01-27 17:18] LABS: % BANDS 2 % (0-9); % LYMPHS 3 % (24-48); % MONOS 5 % (0-10); % SEGS 90 % (35-66); PLT ESTIMATE ADEQUATE (ADEQUATE)
[2021-01-27 19:55] VITALS: BP 109/65
[2021-01-27] MEDS: IV NORMAL SALINE 1000ML BAG 1,000 ML IV SCH ×2 (20:55→22:20)
[2021-01-27] MEDS: LACTOBACILLUS RHAMNOSUS GG 1 CAPSULE. PO SCH (20:57)
[2021-01-27] MEDS: cefTRIAXone IV Push 1 GM VIAL. IVP SCH (20:57)
[2021-01-27 23:24] VITALS: BP 104/56
[2021-01-28 03:57] VITALS: BP 111/55
[2021-01-28 07:00] VITALS: BP 114/66
[2021-01-28] MEDS: methylPREDNISolone SOD SUCC PF 40 MG/ML VIAL. IV SCH ×2 (09:07→21:17)
[2021-01-28] MEDS: LACTOBACILLUS RHAMNOSUS GG 1 CAPSULE. PO SCH ×2 (09:07→21:17)
[2021-01-28] MEDS: CITALOPRAM 20 MG TABLET. PO SCH (09:08)
[2021-01-28] MEDS: MULTIVITAMIN with MINERAL TABLET. PO SCH (09:08)
[2021-01-28] MEDS: MEMANTINE 10 MG TABLET. PO SCH ×2 (09:08→21:17)
[2021-01-28] MEDS: ASPIRIN CHEWABLE 81 MG TABLET. PO SCH (09:08)
[2021-01-28] MEDS: DIVALPROEX DELAYED RELEASE 250 MG TABLET.DR. PO SCH ×3 (09:08→21:17)
[2021-01-28] MEDS: PANTOPRAZOLE 40 MG TABLET.DR. PO SCH (09:08)
[2021-01-28] MEDS: RIVASTIGMINE 4.6MG PATCH. TD SCH (09:09)
[2021-01-28] MEDS: DOXYCYCLINE HYCLATE 100 MG in IV DEXTROSE 5% 100ML 100 ML IV SCH ×2 (09:14→21:17)
[2021-01-28 11:00] VITALS: BP 97/60
--- NOTE | 2021-01-28 11:07 | PDOC ---
PROGRESS NOTES Date of Service: DATE: 01/28/21 TIME: 11:07 Chief Complaint Chief Complaint ASSESSMENT AND PLAN: COVID-19, Bilateral airspace opacities consistent with Covid pneumonia. acute hypoxic respiratory failure. Dementia admitted. start COVID protocol. not hypoxic at this time, he does not meet criteria for remdesivir, start IV steroids, broad-spectrum antibiotics, vitamins, minerals, beta agonist, oxygen support , codeine cough syrup aspirin. Home meds. DVT prophylaxis. Full code. LONG-TERM PROGNOSIS: Guarded. d/w rn History of Present Illness History of Present Illness CHIEF COMPLAINT: Weakness. HISTORY OF PRESENT ILLNESS: pleasant 65-year-old male who was brought to the ER by EMS. is weak, but he does have a history of dementia. He was diagnosed with COVID-19 on 01/10. now developed a fever. He is having problems breathing and coughing. Basically, his COVID-19 is worsening. We are going to admit the patient per COVID-19 protocol. PAST MEDICAL HISTORY: Dementia, COVID-19 for the past 15 days, previous pneumonia, Alzheimer's, partial left eye blindness, appendectomy. ALLERGIES: None. FAMILY HISTORY: Diabetes. SOCIAL HISTORY: He does not drink, smoke or take drugs. He is . MEDICATIONS: Reviewed. REVIEW OF SYSTEMS: Unable too confused. 01-28 D/W BY PHONE [phone] COVID-19, Bilateral airspace opacities consistent with Covid pneumonia. acute hypoxic respiratory failure. Dementia COVID protocol. not hypoxic at this time, he does not meet criteria for remdesivir, start IV steroids, broad-spectrum antibiotics, vitamins, minerals, beta agonist, oxygen support , codeine cough syrup aspirin. Home meds. DVT prophylaxis. Full code. LONG-TERM PROGNOSIS: Guarded. ATE ABOUT 25% OF LUNCH, SEEM MORE ALERT TODAY d/w rn Vitals Vitals Vital Signs Date Time Temp Pulse Resp B/P (MAP) Pulse Ox O2 Delivery O2 Flow Rate FiO2 01/28/21 07:00 96.1 79 16 114/66 (82) 98 Room Air 96.1 Physical Exam Physical Exam VITALS: Within normal limits and are stable. GENERAL: He is pleasantly confused and very weak. HEENT: Normal cephalic atraumatic, external auditory canals are patent. EYES: Extraocular muscles are intact, pupils are equally round and reactive to light and accommodation. MUSCULOSKELETAL: Well developed, well nourished, good range of motion. ENDOCRINE: No thyromegaly was palpated. LYMPHATICS: No cervical chain or axillary nodes were noted. HEMATOPOIETIC: No bruising. NECK: Supple, no JVD, no thyromegaly was noted. LUNGS: He has got bibasilar crackles. HEART: RRR, S1, S2 present. Peripheral pulses intact, no obvious murmurs were noted. ABDOMEN: Soft, nontender. Positive bowel sounds no organomegaly, normal bowel sounds. EXTREMITIES: Without any cyanosis, clubbing, or edema. Pedal pulses intact, Homans sign is negative. NEUROLOGIC: He is pleasantly confused and very weak. PSYCHIATRIC: He is pleasantly confused and very weak. SKIN: No ulcerations or rashes, good skin turgor, no jaundice. VASCULAR: Good capillary refill, neurovascular bundle appears to be intact. General: Alert, Cooperative, No acute distress Heart: Regular rate, No murmurs Lungs: Clear Labs LABS Laboratory Tests Test 01/27/21 16:30 White Blood Count 19.0 x10^3/uL (4.0-11.0) Red Blood Count 4.42 x10^6/uL (4.30-5.70) Hemoglobin 13.7 g/dL (13.0-17.5) Hematocrit 41.0 % (39.0-53.0) Mean Corpuscular Volume 93 fL (79-100) Mean Corpuscular Hemoglobin 31 pg (25-35) Mean Corpuscular Hemoglobin Concent 33 g/dL (31-37) Red Cell Distribution Width 13.2 % (11.5-14.5) Platelet Count 325 x10^3/uL (140-400) Neutrophils (%) (Auto) 89 % (31-73) Lymphocytes (%) (Auto) 5 % (24-48) Monocytes (%) (Auto) 5 % (0-9) Eosinophils (%) (Auto) 0 % (0-3) Basophils (%) (Auto) 0 % (0-3) Neutrophils # (Auto) 17.0 x10^3/uL (1.8-7.7) Lymphocytes # (Auto) 1.0 x10^3/uL (1.0-4.8) Monocytes # (Auto) 1.0 x10^3/uL (0.0-1.1) Eosinophils # (Auto) 0.0 x10^3/uL (0.0-0.7) Basophils # (Auto) 0.1 x10^3/uL (0.0-0.2) Segmented Neutrophils % 90 % (35-66) Band Neutrophils % 2 % (0-9) Lymphocytes % 3 % (24-48) Monocytes % 5 % (0-10) Platelet Estimate Adequate (ADEQUATE) Sodium Level 145 mmol/L (136-145) Potassium Level 4.0 mmol/L (3.5-5.1) Chloride Level 109 mmol/L (98-107) Carbon Dioxide Level 22 mmol/L (21-32) Anion Gap 14 (6-14) Blood Urea Nitrogen 19 mg/dL (8-26) Creatinine 1.0 mg/dL (0.7-1.3) Estimated GFR (Cockcroft-Gault) 74.5 BUN/Creatinine Ratio 19 (6-20) Glucose Level 144 mg/dL (70-99) Calcium Level 8.6 mg/dL (8.5-10.1) Ferritin 754 ng/mL (26-388) Total Bilirubin 0.3 mg/dL (0.2-1.0) Aspartate Amino Transf (AST/SGOT) 27 U/L (15-37) Alanine Aminotransferase (ALT/SGPT) 39 U/L (16-63) Alkaline Phosphatase 89 U/L (46-116) Total Protein 5.8 g/dL (6.4-8.2) Albumin 2.7 g/dL (3.4-5.0) Albumin/Globulin Ratio 0.9 (1.0-1.7) Assessment and Plan Assessmemt and Plan Problems Medical Problems: (1) Generalized weakness Status: Acute (2) Pneumonia due to COVID-19 virus Status: Acute Comment Review of Relevant I have reviewed the following items lewis (where applicable) has been applied. Labs Laboratory Tests Test 01/27/21 16:30 White Blood Count 19.0 x10^3/uL (4.0-11.0) Red Blood Count 4.42 x10^6/uL (4.30-5.70) Hemoglobin 13.7 g/dL (13.0-17.5) Hematocrit 41.0 % (39.0-53.0) Mean Corpuscular Volume 93 fL (79-100) Mean Corpuscular Hemoglobin 31 pg (25-35) Mean Corpuscular Hemoglobin Concent 33 g/dL (31-37) Red Cell Distribution Width 13.2 % (11.5-14.5) Platelet Count 325 x10^3/uL (140-400) Neutrophils (%) (Auto) 89 % (31-73) Lymphocytes (%) (Auto) 5 % (24-48) Monocytes (%) (Auto) 5 % (0-9) Eosinophils (%) (Auto) 0 % (0-3) Basophils (%) (Auto) 0 % (0-3) Neutrophils # (Auto) 17.0 x10^3/uL (1.8-7.7) Lymphocytes # (Auto) 1.0 x10^3/uL (1.0-4.8) Monocytes # (Auto) 1.0 x10^3/uL (0.0-1.1) Eosinophils # (Auto) 0.0 x10^3/uL (0.0-0.7) Basophils # (Auto) 0.1 x10^3/uL (0.0-0.2) Segmented Neutrophils % 90 % (35-66) Band Neutrophils % 2 % (0-9) Lymphocytes % 3 % (24-48) Monocytes % 5 % (0-10) Platelet Estimate Adequate (ADEQUATE) Sodium Level 145 mmol/L (136-145) Potassium Level 4.0 mmol/L (3.5-5.1) Chloride Level 109 mmol/L (98-107) Carbon Dioxide Level 22 mmol/L (21-32) Anion Gap 14 (6-14) Blood Urea Nitrogen 19 mg/dL (8-26) Creatinine 1.0 mg/dL (0.7-1.3) Estimated GFR (Cockcroft-Gault) 74.5 BUN/Creatinine Ratio 19 (6-20) Glucose Level 144 mg/dL (70-99) Calcium Level 8.6 mg/dL (8.5-10.1) Ferritin 754 ng/mL (26-388) Total Bilirubin 0.3 mg/dL (0.2-1.0) Aspartate Amino Transf (AST/SGOT) 27 U/L (15-37) Alanine Aminotransferase (ALT/SGPT) 39 U/L (16-63) Alkaline Phosphatase 89 U/L (46-116) Total Protein 5.8 g/dL (6.4-8.2) Albumin 2.7 g/dL (3.4-5.0) Albumin/Globulin Ratio 0.9 (1.0-1.7) Laboratory Tests Test 01/27/21 16:30 White Blood Count 19.0 x10^3/uL (4.0-11.0) Red Blood Count 4.42 x10^6/uL (4.30-5.70) Hemoglobin 13.7 g/dL (13.0-17.5) Hematocrit 41.0 % (39.0-53.0) Mean Corpuscular Volume 93 fL (79-100) Mean Corpuscular Hemoglobin 31 pg (25-35) Mean Corpuscular Hemoglobin Concent 33 g/dL (31-37) Red Cell Distribution Width 13.2 % (11.5-14.5) Platelet Count 325 x10^3/uL (140-400) Neutrophils (%) (Auto) 89 % (31-73) Lymphocytes (%) (Auto) 5 % (24-48) Monocytes (%) (Auto) 5 % (0-9) Eosinophils (%) (Auto) 0 % (0-3) Basophils (%) (Auto) 0 % (0-3) Neutrophils # (Auto) 17.0 x10^3/uL (1.8-7.7) Lymphocytes # (Auto) 1.0 x10^3/uL (1.0-4.8) Monocytes # (Auto) 1.0 x10^3/uL (0.0-1.1) Eosinophils # (Auto) 0.0 x10^3/uL (0.0-0.7) Basophils # (Auto) 0.1 x10^3/uL (0.0-0.2) Segmented Neutrophils % 90 % (35-66) Band Neutrophils % 2 % (0-9) Lymphocytes % 3 % (24-48) Monocytes % 5 % (0-10) Platelet Estimate Adequate (ADEQUATE) Sodium Level 145 mmol/L (136-145) Potassium Level 4.0 mmol/L (3.5-5.1) Chloride Level 109 mmol/L (98-107) Carbon Dioxide Level 22 mmol/L (21-32) Anion Gap 14 (6-14) Blood Urea Nitrogen 19 mg/dL (8-26) Creatinine 1.0 mg/dL (0.7-1.3) Estimated GFR (Cockcroft-Gault) 74.5 BUN/Creatinine Ratio 19 (6-20) Glucose Level 144 mg/dL (70-99) Calcium Level 8.6 mg/dL (8.5-10.1) Ferritin 754 ng/mL (26-388) Total Bilirubin 0.3 mg/dL (0.2-1.0) Aspartate Amino Transf (AST/SGOT) 27 U/L (15-37) Alanine Aminotransferase (ALT/SGPT) 39 U/L (16-63) Alkaline Phosphatase 89 U/L (46-116) Total Protein 5.8 g/dL (6.4-8.2) Albumin 2.7 g/dL (3.4-5.0) Albumin/Globulin Ratio 0.9 (1.0-1.7) Microbiology 01/25/21 Blood Culture - Preliminary, Resulted NO GROWTH AFTER 2 DAYS Medications Current Medications Sodium Chloride 1,000 ml @ 1,000 mls/hr 1X ONCE IV Last administered on 1at 23:54; Start 01/25/21 at 23:30; Stop 01/26/21 at 00:29; Status DC Acetaminophen (Tylenol) 1,000 mg 1X ONCE PO Last administered on 01/26/21at 00:15; Start 01/25/21 at 23:30; Stop 01/25/21 at 23:31; Status DC Methylprednisolone Sodium Succinate (SOLU-Medrol 125MG VIAL) 125 mg 1X ONCE IV Last administered on 01/26/21at 00:11; Start 01/25/21 at 23:45; Stop 01/25/21 at 23:46; Status DC Lorazepam (Ativan Inj) 1 mg 1X ONCE IVP Last administered on 01/26/21at 00:13; Start 01/26/21 at 00:15; Stop 01/26/21 at 00:16; Status DC Ceftriaxone Sodium (Rocephin) 1 gm 1X ONCE IVP Last administered on 01/26/21at 01:37; Start 01/26/21 at 01:00; Stop 01/26/21 at 01:01; Status DC Azithromycin 250 ml @ 250 mls/hr 1X ONCE IV Last administered on 01/26/21at 01:45; Start 01/26/21 at 01:00; Stop 01/26/21 at 01:59; Status DC Sodium Chloride 1,000 ml @ 75 mls/hr [id number] IV Last administered on 01/27/21 22:20; Start 01/26/21 at 09:30 Ceftriaxone Sodium (Rocephin) 1 gm Q24H IVP Last administered on 01/27/21 20:57; Start 01/26/21 at 21:00 Doxycycline Hyclate 100 mg/ Dextrose 100 ml @ 50 mls/hr Q12HR IV Last administered on 01/28/21 09:14; Start 01/26/21 at 13:30 Methylprednisolone Sodium Succinate (SOLU-Medrol 40MG VIAL) 40 mg BID IV Last administered on 01/28/21 09:07; Start 01/26/21 at 14:00 Multivitamins (Thera M Plus) 1 tab DAILY PO Last administered on 01/28/21 09:08; Start 01/27/21 at 09:00 Guaifenesin/ Codeine Phosphate (Robitussin Ac) 5 ml PRN Q6HRS PRN PO COUGH Last administered on 01/27/21 20:57; Start 01/26/21 at 13:00 Aspirin (Aspirin Chewable) 81 mg [id number] PO Last administered on 01/28/21 09:08; Start 01/26/21 at 14:00 Divalproex Sodium (Depakote) 250 mg TID PO Last administered on 01/28/21 09:08; Start 01/26/21 at 21:00 Memantine (Namenda) 10 mg BID PO Last administered on 01/28/21 09:08; Start 01/26/21 at 21:00 Olanzapine (ZyPREXA) 2.5 mg PRN Q6HRS PRN PO ANXIETY / AGITATION Last administered on 01/27/21 22:19; Start 01/26/21 at 15:45 Pantoprazole Sodium (Protonix) 40 mg DAILYAC PO Last administered on 01/28/21 09:08; Start 01/27/21 at 07:30 Rivastigmine (Exelon) 1 patch DAILY TD Last administered on 01/28/21at 09:09; Start 01/27/21 at 09:00 Citalopram Hydrobromide (CeleXA) 40 mg DAILY PO Last administered on 01/28/21at 09:08; Start 01/27/21 at 09:00 Multivitamins (Thera M Plus) 1 tab DAILY PO ; Start 01/27/21 at 09:00; Stop 01/26/21 at 21:59; Status DC Lactobacillus Rhamnosus (Culturelle) 1 cap BID PO Last administered on 01/28/21at 09:07; Start 01/27/21 at 21:00 Active Scripts Active Sm Therapeutic M Tablet (Multivit,Ther Iron,Ca,Fa & Min) 1 Each Tablet 1 Tab PO DAILY 30 Days Reported Trazodone Hcl 50 Mg Tablet 0.5 Mg PO PRN Q6HRS PRN EXELON 4.6mg/24hr (Rivastigmine) 1 Each Patch.td24 1 Patch TP DAILY Olanzapine 5 Mg Tablet 2.5 Mg PO PRN Q6HRS PRN Divalproex Sodium 500 Mg Tablet. 0.5 Tab PO TID Escitalopram Oxalate 20 Mg Tablet 1 Tab PO DAILY Namenda (Memantine Hcl) 10 Mg Tablet 28 Mg PO DAILY Pantoprazole Sodium (Pantoprazole Sodium) 40 Mg Tablet.dr 40 Mg PO DAILYAC Vitals/I & O Vital Sign - Last 24 Hours 01/27/21 01/27/21 01/27/21 01/27/21 15:00 19:55 20:01 23:24 Temp 97.3 97.9 97.7 97.3 97.9 97.7 Pulse 75 87 82 Resp 20 18 18 B/P (MAP) 108/69 (82) 109/65 (80) 104/56 (72) Pulse Ox 96 96 96 O2 Delivery Room Air Room Air Room Air Room Air 01/28/21 01/28/21 03:57 07:00 Temp 97.5 96.1 97.5 96.1 Pulse 60 79 Resp 18 16 B/P (MAP) 111/55 (73) 114/66 (82) Pulse Ox 99 98 O2 Delivery Room Air Room Air Intake and Output 01/27/21 01/27/21 01/28/21 15:00 23:00 07:00 Intake Total 360 ml 250 ml 120 ml Output Total 400 ml Balance 360 ml -150 ml 120 ml Justicifation of Admission Dx: Justifications for Admission: Justification of Admission Dx: N/A THOR GRANT MD Jan 28, 2021 11:07
[2021-01-28] MEDS: IV NORMAL SALINE 1000ML BAG 1,000 ML IV SCH ×2 (14:50→21:18)
[2021-01-28 15:00] VITALS: BP 124/77
--- NOTE | 2021-01-28 16:13 | RAD ---
XR CHEST 1V INDICATION: pneumonia . COMPARISON STUDY: 01/26/2021. FINDINGS: Lungs: Normal lung volume. Improving patchy bilateral opacities. Pleura: No pleural effusion or pneumothorax. Heart and Mediastinum: Stable cardiomediastinal silhouette and great vessels. Bones and Soft Tissues: Stable regional skeleton and soft tissues. IMPRESSION: Improving patchy bilateral opacities. Electronically signed by: Shawn Walker MD (01/28/2021 4:10 PM) [facility]ENTERLu[facility]
[2021-01-28] MEDS: ENOXAPARIN 40 MG/0.4 ML SYRINGE. SQ SCH (17:04)
[2021-01-28 19:53] VITALS: BP 114/77
[2021-01-28] MEDS: cefTRIAXone IV Push 1 GM VIAL. IVP SCH (21:16)
[2021-01-28] MEDS: guaiFENesin/CODEINE 100mg/10mg 5 ML LIQUID PO PRN (22:28)
[2021-01-28] MEDS: OLANZapine 5 MG TABLET PO PRN (22:29)
[2021-01-28 23:25] VITALS: BP 145/91
[2021-01-29 03:30] VITALS: BP 108/57
[2021-01-29 07:00] VITALS: BP 121/72
[2021-01-29 08:52] LABS: BASO % 0 % (0-3); EOS % 0 % (0-3); HEMATOCRIT 34.3 % (39.0-53.0); HEMOGLOBIN 11.8 g/dL (13.0-17.5); LYMPH % 9 % (24-48); MEAN CORPUSCULAR HEMOGLOBIN 31 pg (25-35); MEAN CORPUSCULAR HGB CONC 34 g/dL (31-37); MEAN CORPUSCULAR VOLUME 92 fL (79-100); MONO # 0.7 x10^3/uL (0.0-1.1); MONO % 7 % (0-9); NEUT # 8.7 x10^3/uL (1.8-7.7); NEUT % 84 % (31-73); PLATELET COUNT 325 x10^3/uL (140-400); RED BLOOD COUNT 3.75 x10^6/uL (4.30-5.70); RED CELL DISTRIBUTION WIDTH 13.2 % (11.5-14.5); WHITE BLOOD COUNT 10.4 x10^3/uL (4.0-11.0)
[2021-01-29] MEDS: DOXYCYCLINE HYCLATE 100 MG in IV DEXTROSE 5% 100ML 100 ML IV SCH ×3 (09:00→22:06)
[2021-01-29 09:11] LABS: ALBUMIN 2.4 g/dL (3.4-5.0); ALBUMIN/GLOBULIN RATIO 0.8 (1.0-1.7); CALCIUM 8.8 mg/dL (8.5-10.1); CREATININE 0.9 mg/dL (0.7-1.3); GFR 84.2; POTASSIUM 3.9 mmol/L (3.5-5.1); TOTAL BILIRUBIN 0.3 mg/dL (0.2-1.0); TOTAL PROTEIN 5.4 g/dL (6.4-8.2)
[2021-01-29] MEDS: methylPREDNISolone SOD SUCC PF 40 MG/ML VIAL. IV SCH ×2 (10:46→22:06)
[2021-01-29] MEDS: CITALOPRAM 20 MG TABLET. PO SCH (10:46)
[2021-01-29] MEDS: PANTOPRAZOLE 40 MG TABLET.DR. PO SCH (10:48)
[2021-01-29] MEDS: DIVALPROEX DELAYED RELEASE 250 MG TABLET.DR. PO SCH ×3 (10:48→22:06)
[2021-01-29] MEDS: MULTIVITAMIN with MINERAL TABLET. PO SCH (10:48)
[2021-01-29] MEDS: MEMANTINE 10 MG TABLET. PO SCH ×2 (10:48→22:07)
[2021-01-29] MEDS: RIVASTIGMINE 4.6MG PATCH. TD SCH (10:48)
[2021-01-29] MEDS: ASPIRIN CHEWABLE 81 MG TABLET. PO SCH (10:50)
[2021-01-29] MEDS: LACTOBACILLUS RHAMNOSUS GG 1 CAPSULE. PO SCH ×2 (10:52→22:06)
[2021-01-29 11:00] VITALS: BP 123/74
--- NOTE | 2021-01-29 14:07 | PDOC ---
[employer] PROGRESS NOTE Date of Service DOS: DATE: 01/29/21 TIME: 14:05 Chief Complaint Chief Complaint ASSESSMENT AND PLAN: COVID-19, Bilateral airspace opacities consistent with Covid pneumonia. acute hypoxic respiratory failure. Dementia start COVID protocol. not hypoxic at this time, he does not meet criteria for remdesivir, start IV steroids, broad-spectrum antibiotics, vitamins, minerals, beta agonist, oxygen support , codeine cough syrup aspirin. Home meds. DVT prophylaxis. Full code. Continue COVID treatment LONG-TERM PROGNOSIS: Guarded. d/w rn History of Present Illness History of Present Illness CHIEF COMPLAINT: Weakness. HISTORY OF PRESENT ILLNESS: pleasant 65-year-old male who was brought to the ER by EMS. is weak, but he does have a history of dementia. He was diagnosed with COVID-19 on 01/10. now developed a fever. He is having problems breathing and coughing. Basically, his COVID-19 is worsening. We are going to admit the patient per COVID-19 protocol. 01-28 D/W BY PHONE [phone] COVID-19, Bilateral airspace opacities consistent with Covid pneumonia. acute hypoxic respiratory failure. Dementia COVID protocol. not hypoxic at this time, he does not meet criteria for remdesivir, start IV steroids, broad-spectrum antibiotics, vitamins, minerals, beta agonist, oxygen support , codeine cough syrup aspirin. Home meds. DVT prophylaxis. Full code. LONG-TERM PROGNOSIS: Guarded. 01/29 Patient seen and examined at bedside. Was resting. Remains on room air. Remains confused, continue COVID treatment. Plan of care discussed with bedside RN. Vitals/I&O Vitals/I&O: Vital Signs Date Time Temp Pulse Resp B/P (MAP) Pulse Ox O2 Delivery O2 Flow Rate FiO2 01/29/21 11:00 96.9 66 16 123/74 (90) 99 Room Air 96.9 I & O 01/28/21 01/28/21 01/29/21 15:00 23:00 07:00 Intake Total 100 ml 420 ml 220 ml Balance 100 ml 420 ml 220 ml Physical Exam Physical Exam: VITALS: Within normal limits and are stable. GENERAL: He is pleasantly confused and very weak. HEENT: Normal cephalic atraumatic, external auditory canals are patent. EYES: Extraocular muscles are intact, pupils are equally round and reactive to light and accommodation. MUSCULOSKELETAL: Well developed, well nourished, good range of motion. ENDOCRINE: No thyromegaly was palpated. LYMPHATICS: No cervical chain or axillary nodes were noted. HEMATOPOIETIC: No bruising. NECK: Supple, no JVD, no thyromegaly was noted. LUNGS: He has got bibasilar crackles. HEART: RRR, S1, S2 present. Peripheral pulses intact, no obvious murmurs were noted. ABDOMEN: Soft, nontender. Positive bowel sounds no organomegaly, normal bowel sounds. EXTREMITIES: Without any cyanosis, clubbing, or edema. Pedal pulses intact, Homans sign is negative. NEUROLOGIC: He is pleasantly confused and very weak. PSYCHIATRIC: He is pleasantly confused and very weak. SKIN: No ulcerations or rashes, good skin turgor, no jaundice. VASCULAR: Good capillary refill, neurovascular bundle appears to be intact. General: Alert, Cooperative, No acute distress Heart: Regular rate, No murmurs Lungs: Clear Labs Labs: Laboratory Tests Test 01/29/21 08:20 White Blood Count 10.4 x10^3/uL (4.0-11.0) Red Blood Count 3.75 x10^6/uL (4.30-5.70) Hemoglobin 11.8 g/dL (13.0-17.5) Hematocrit 34.3 % (39.0-53.0) Mean Corpuscular Volume 92 fL (79-100) Mean Corpuscular Hemoglobin 31 pg (25-35) Mean Corpuscular Hemoglobin Concent 34 g/dL (31-37) Red Cell Distribution Width 13.2 % (11.5-14.5) Platelet Count 325 x10^3/uL (140-400) Neutrophils (%) (Auto) 84 % (31-73) Lymphocytes (%) (Auto) 9 % (24-48) Monocytes (%) (Auto) 7 % (0-9) Eosinophils (%) (Auto) 0 % (0-3) Basophils (%) (Auto) 0 % (0-3) Neutrophils # (Auto) 8.7 x10^3/uL (1.8-7.7) Lymphocytes # (Auto) 1.0 x10^3/uL (1.0-4.8) Monocytes # (Auto) 0.7 x10^3/uL (0.0-1.1) Eosinophils # (Auto) 0.0 x10^3/uL (0.0-0.7) Basophils # (Auto) 0.0 x10^3/uL (0.0-0.2) Sodium Level 147 mmol/L (136-145) Potassium Level 3.9 mmol/L (3.5-5.1) Chloride Level 110 mmol/L (98-107) Carbon Dioxide Level 29 mmol/L (21-32) Anion Gap 8 (6-14) Blood Urea Nitrogen 24 mg/dL (8-26) Creatinine 0.9 mg/dL (0.7-1.3) Estimated GFR (Cockcroft-Gault) 84.2 BUN/Creatinine Ratio 27 (6-20) Glucose Level 111 mg/dL (70-99) Calcium Level 8.8 mg/dL (8.5-10.1) Total Bilirubin 0.3 mg/dL (0.2-1.0) Aspartate Amino Transf (AST/SGOT) 53 U/L (15-37) Alanine Aminotransferase (ALT/SGPT) 81 U/L (16-63) Alkaline Phosphatase 75 U/L (46-116) Total Protein 5.4 g/dL (6.4-8.2) Albumin 2.4 g/dL (3.4-5.0) Albumin/Globulin Ratio 0.8 (1.0-1.7) Assessment and Plan Assessmemt and Plan Problems Medical Problems: (1) Generalized weakness Status: Acute (2) Pneumonia due to COVID-19 virus Status: Acute Comment Review of Relevant I have reviewed the following items lewis (where applicable) has been applied. Medications: Current Medications Medications (Trade) Dose Ordered Sig/Stacy Route PRN Reason Start Time Stop Time Status Last Admin Dose Admin Enoxaparin Sodium (Lovenox 40mg Syringe) 40 mg Q24H SQ 01/28/21 16:00 01/28/21 17:04 Justifications for Admission Other Justification FRONTAL LOBE INTRACRANIAL HEMORRHAGE ROXANNE GATICA MD Jan 29, 2021 14:07
[2021-01-29 15:00] VITALS: BP 168/87
[2021-01-29] MEDS: ENOXAPARIN 40 MG/0.4 ML SYRINGE. SQ SCH (16:25)
[2021-01-29] MEDS: IV NORMAL SALINE 1000ML BAG 1,000 ML IV SCH (17:30)
[2021-01-29 19:00] VITALS: BP 133/81
[2021-01-29] MEDS: cefTRIAXone IV Push 1 GM VIAL. IVP SCH (22:05)
[2021-01-29] MEDS: guaiFENesin/CODEINE 100mg/10mg 5 ML LIQUID PO PRN (22:06)
[2021-01-29] MEDS ORDERED: traZODone 50 MG TABLET. PO PRN (22:15)
[2021-01-29 22:33] VITALS: BP 126/74
[2021-01-30] MEDS: IV NORMAL SALINE 1000ML BAG 1,000 ML IV SCH (03:08)
[2021-01-30 07:00] VITALS: BP 116/65
[2021-01-30] MEDS: LACTOBACILLUS RHAMNOSUS GG 1 CAPSULE. PO SCH (08:39)
[2021-01-30] MEDS: MEMANTINE 10 MG TABLET. PO SCH (08:39)
[2021-01-30] MEDS: DIVALPROEX DELAYED RELEASE 250 MG TABLET.DR. PO SCH (08:39)
[2021-01-30] MEDS: MULTIVITAMIN with MINERAL TABLET. PO SCH (08:39)
[2021-01-30] MEDS: CITALOPRAM 20 MG TABLET. PO SCH (08:39)
[2021-01-30] MEDS: PANTOPRAZOLE 40 MG TABLET.DR. PO SCH (08:39)
[2021-01-30] MEDS: ASPIRIN CHEWABLE 81 MG TABLET. PO SCH (08:39)
[2021-01-30] MEDS: DOXYCYCLINE HYCLATE 100 MG in IV DEXTROSE 5% 100ML 100 ML IV SCH (08:40)
[2021-01-30] MEDS: methylPREDNISolone SOD SUCC PF 40 MG/ML VIAL. IV SCH (08:48)
[2021-01-30] MEDS: RIVASTIGMINE 4.6MG PATCH. TD SCH (09:00)
[2021-01-30 10:10] LABS: CALCIUM 9.1 mg/dL (8.5-10.1); CREATININE 1.1 mg/dL (0.7-1.3); GFR 66.8; POTASSIUM 4.1 mmol/L (3.5-5.1)
--- NOTE | 2021-01-30 10:20 | NUR ---
Patient alert and verbally responsive, remains impulsive and needs redirection occasionally, sitting in chair at the bedside at this time.
[2021-01-30] MEDS ORDERED: DOXY100C3 PO (10:45)
--- NOTE | 2021-01-30 10:47 | PDOC3 ---
Discharge Summary Visit Information Date of Admission: Jan 26, 2021 Date of Discharge: Jan 30, 2021 Admitting Diagnosis: COVID Final Diagnosis Problems Medical Problems: (1) Generalized weakness Status: Acute (2) Pneumonia due to COVID-19 virus Status: Acute Brief Hospital Course Allergies Allergies Coded Allergies Type Severity Reaction Last Updated Verified No Known Drug Allergies 02/17/19 No Vital Signs Vital Signs Date Time Temp Pulse Resp B/P (MAP) Pulse Ox O2 Delivery O2 Flow Rate FiO2 01/30/21 07:00 97.5 59 18 116/65 (82) 97 Room Air 97.5 Lab Results Laboratory Tests Test 01/29/21 08:20 01/30/21 09:45 White Blood Count 10.4 x10^3/uL (4.0-11.0) Red Blood Count 3.75 x10^6/uL (4.30-5.70) Hemoglobin 11.8 g/dL (13.0-17.5) Hematocrit 34.3 % (39.0-53.0) Mean Corpuscular Volume 92 fL (79-100) Mean Corpuscular Hemoglobin 31 pg (25-35) Mean Corpuscular Hemoglobin Concent 34 g/dL (31-37) Red Cell Distribution Width 13.2 % (11.5-14.5) Platelet Count 325 x10^3/uL (140-400) Neutrophils (%) (Auto) 84 % (31-73) Lymphocytes (%) (Auto) 9 % (24-48) Monocytes (%) (Auto) 7 % (0-9) Eosinophils (%) (Auto) 0 % (0-3) Basophils (%) (Auto) 0 % (0-3) Neutrophils # (Auto) 8.7 x10^3/uL (1.8-7.7) Lymphocytes # (Auto) 1.0 x10^3/uL (1.0-4.8) Monocytes # (Auto) 0.7 x10^3/uL (0.0-1.1) Eosinophils # (Auto) 0.0 x10^3/uL (0.0-0.7) Basophils # (Auto) 0.0 x10^3/uL (0.0-0.2) Sodium Level 147 mmol/L (136-145) 148 mmol/L (136-145) Potassium Level 3.9 mmol/L (3.5-5.1) 4.1 mmol/L (3.5-5.1) Chloride Level 110 mmol/L (98-107) 110 mmol/L (98-107) Carbon Dioxide Level 29 mmol/L (21-32) 30 mmol/L (21-32) Anion Gap 8 (6-14) 8 (6-14) Blood Urea Nitrogen 24 mg/dL (8-26) 25 mg/dL (8-26) Creatinine 0.9 mg/dL (0.7-1.3) 1.1 mg/dL (0.7-1.3) Estimated GFR (Cockcroft-Gault) 84.2 66.8 BUN/Creatinine Ratio 27 (6-20) Glucose Level 111 mg/dL (70-99) 106 mg/dL (70-99) Calcium Level 8.8 mg/dL (8.5-10.1) 9.1 mg/dL (8.5-10.1) Total Bilirubin 0.3 mg/dL (0.2-1.0) Aspartate Amino Transf (AST/SGOT) 53 U/L (15-37) Alanine Aminotransferase (ALT/SGPT) 81 U/L (16-63) Alkaline Phosphatase 75 U/L (46-116) Total Protein 5.4 g/dL (6.4-8.2) Albumin 2.4 g/dL (3.4-5.0) Albumin/Globulin Ratio 0.8 (1.0-1.7) Laboratory Tests Test 01/30/21 09:45 Sodium Level 148 mmol/L (136-145) Potassium Level 4.1 mmol/L (3.5-5.1) Chloride Level 110 mmol/L (98-107) Carbon Dioxide Level 30 mmol/L (21-32) Anion Gap 8 (6-14) Blood Urea Nitrogen 25 mg/dL (8-26) Creatinine 1.1 mg/dL (0.7-1.3) Estimated GFR (Cockcroft-Gault) 66.8 Glucose Level 106 mg/dL (70-99) Calcium Level 9.1 mg/dL (8.5-10.1) Brief Hospital Course Chief Complaint ASSESSMENT AND PLAN: COVID-19, Bilateral airspace opacities consistent with Covid pneumonia. acute hypoxic respiratory failure. Dementia start COVID protocol. not hypoxic at this time, he does not meet criteria for remdesivir, start IV steroids, broad-spectrum antibiotics, vitamins, minerals, beta agonist, oxygen support , codeine cough syrup aspirin. Home meds. DVT prophylaxis. Full code. Continue COVID treatment LONG-TERM PROGNOSIS: Guarded. d/w rn History of Present Illness History of Present Illness CHIEF COMPLAINT: Weakness. HISTORY OF PRESENT ILLNESS: pleasant 65-year-old male who was brought to the ER by EMS. is weak, but he does have a history of dementia. He was diagnosed with COVID-19 on 01/10. now developed a fever. He is having problems breathing and coughing. Basically, his COVID-19 is worsening. We are going to admit the patient per COVID-19 protocol. 01-28 D/W BY PHONE [phone] COVID-19, Bilateral airspace opacities consistent with Covid pneumonia. acute hypoxic respiratory failure. Dementia COVID protocol. not hypoxic at this time, he does not meet criteria for rem desivir, start IV steroids, broad-spectrum antibiotics, vitamins, minerals, beta agonist, oxygen support , codeine cough syrup aspirin. Home meds. DVT prophylaxis. Full code. LONG-TERM PROGNOSIS: Guarded. 01/29 Patient seen and examined at bedside. Was resting. Remains on room air. Remains confused, continue COVID treatment. Plan of care discussed with bedside RN. 01/30 Patient evaluated at bedside. Remains stable, clear for d/c home today with family. Discharge Information Condition at Discharge: Improved Disposition/Orders: D/C to Home Scheduled Divalproex Sodium (Divalproex Sodium) 500 Mg Tablet.dr, 0.5 TAB PO TID for unknown, #60 Ref 1 (Reported) Entered as Reported by: PATRICIA SOLIS on 01/26/21 0805 Last Taken: Unknown Dose on Unknown Date & Time Last Action: Continued on 01/26/21 1546 by PATRICIA SOLIS Doxycycline Hyclate (Doxycycline Hyclate) 100 Mg Capsule, 1 CAP PO BID for pneumonia for 5 Days, #10 Prescribed by: ROXANNE GATICA MD on 01/30/21 1045 Escitalopram Oxalate (Escitalopram Oxalate) 20 Mg Tablet, 1 TAB PO DAILY for unknown, #30 Ref 5 (Reported) Entered as Reported by: PATRICIA SOLIS on 01/26/21804 Last Action: Converted on 01/26/211545 by PATRICIA SOLIS Memantine Hcl (Namenda) 10 Mg Tablet, 28 MG PO DAILY for alzheimers, (Reported) Entered as Reported by: Orlin Ross on 09/07/202353 Last Action: Continued on 01/26/211545 by PATRICIA SOLIS Multivit,Ther Iron,Ca,Fa & Min (Sm Therapeutic M Tablet) 1 Each Tablet, 1 TAB PO DAILY for SUPPLEMENT for 30 Days, #30 Ref 0 Prescribed by: THOR GRANT MD on 09/09/20 1333 Last Action: Converted on 01/26/211545 by PATRICIA SOLIS Pantoprazole Sodium (Pantoprazole Sodium ) 40 Mg Tablet.dr, 40 MG PO DAILYAC for GERD, (Reported) Entered as Reported by: Orlin Ross on 09/07/202353 Last Action: Continued on 01/26/211545 by PATRICIA SOLIS Rivastigmine (EXELON 4.6mg/24hr) 1 Each Patch.td24, 1 PATCH TP DAILY for unkno, #30 Ref 3 (Reported) Entered as Reported by: PATRICIA SOLIS on 01/26/21804 Last Action: Continued on 01/26/211545 by PATRICIA SOLIS Scheduled PRN Olanzapine (Olanzapine) 5 Mg Tablet, 2.5 MG PO PRN Q6HRS PRN for ANXIETY / AGITATION, (Reported) Entered as Reported by: PATRICIA SOLIS on 01/26/21804 Last Action: Continued on 01/26/211545 by PATRICIA SOLIS Trazodone Hcl (Trazodone Hcl) 50 Mg Tablet, 100 MG PO PRN Q6HRS PRN for ANXIETY / AGITATION, (Reported) Entered as Reported by: PATRICIA SOLIS on 01/26/21804 Last Taken: Unknown Dose on Unknown Date & Time Last Action: Continued on 01/29/212202 by MIAH Kempicifation of Admission Dx: Justifications for Admission: Justification of Admission Dx: N/A ROXANNE GATICA MD Jan 30, 2021 10:47
[2021-01-30 11:00] VITALS: BP 125/62
--- NOTE | 2021-01-30 13:00 | NUR ---
DISCHARGE INSTRUCTIONS GIVEN TO PATIENTS AT THE BEDSIDE, QUESTIONS AND CONCERNS ANSWERED, DISCHARGE PAPERWORK GIVEN AND PATIENT ASSISTED TO W/C PER MICROBIOLOGY PROFESSOR.
--- NOTE | 2021-01-30 13:20 | NUR ---
PATIENT LEAVES THE UNIT PER W/C AND ALONGSIDE HIS AND CREDIT ASSOCIATE, EMOTIONAL SUPPORT GIVEN, FOLLOW UP APPOINTMENTS ENCOURAGED.
== END 2021-01-30 13:20 | disposition home or self-care (01) | DRG 177 ==
LOC: ER 22:57 → ED HOLD 01-26 00:55 → 5 NORTH 01-26 21:56
PROVIDERS: ADMIT Internal Medicine; ATTEND Internal Medicine
DX: U07.1 COVID-19 (principal); J96.01 Acute respiratory failure with hypoxia; J12.82 Pneumonia due to coronavirus disease 2019; F02.80 Dementia in other diseases classified elsewhere, unspecified severity, without behavioral disturbance, psychotic disturbance, mood disturbance, and anxiety; F41.9 Anxiety disorder, unspecified; G30.9 Alzheimer's disease, unspecified; H54.62 Unqualified visual loss, left eye, normal vision right eye; K21.9 Gastro-esophageal reflux disease without esophagitis; Z79.899 Other long term (current) drug therapy; Z83.3 Family history of diabetes mellitus; Z90.49 Acquired absence of other specified parts of digestive tract
CPT/HCPCS: 36415; 71045; 80048; 80053; 82728; 83605; 83735; 83880; 84484; 85007; 85025; 87040; 93005; 96361; 96374; 96375; J0456; J0696; J1650; J2060; J2920; J2930; J3490; J7030; J7060; 99285-25; G0378